=== PATIENT | female | born 1985 | race Caucasian/White ===

== ENCOUNTER 2018-04-29 15:28 | Emergency (ER) | payer MEDICAID, OTHER ==
[~2018-04-29] VITALS: Ht 170.2 cm; Wt 56.7 kg
[2018-04-29 17:34] LABS: MICROSCOPIC NOT IND
[2018-04-29 17:38] LABS: CULTURE INDICATED? NO
[2018-04-29 17:43] VITALS: BP 112/86
[2018-04-29 17:58] VITALS: BP 139/99
== END 2018-04-29 18:07 | disposition home or self-care (01) ==
LOC: ED 17:59
DX: O20.0 Threatened abortion (principal); I10 Essential (primary) hypertension
CPT/HCPCS: 36415; 76815; 81003; 86850; 86900; 99285; J2790; 36430